=== PATIENT | female | born 1990 | race Caucasian/White ===

== ENCOUNTER 2021-12-10 08:40 | Outpatient (CLI) | payer BC, SELFPAY | END 2021-12-10 08:41 | disposition home or self-care (01) | LOC: ANHLAB 08:47 | DX: N91.2 Amenorrhea, unspecified (principal) | CPT/HCPCS: 36415; 84702 ==

== ENCOUNTER 2022-03-14 08:52 | Outpatient (CLI) | payer BC, SELFPAY ==
[2022-03-14 10:34] LABS: HIV 1/2 Ab P24 Ag Result Negative (Negative)
[2022-03-14 12:08] LABS: Hepatitis C Virus Antibody Negative (Negative)
== END 2022-03-14 08:53 | disposition home or self-care (01) ==
LOC: ANHLAB 09:01
DX: O36.80X0 Pregnancy with inconclusive fetal viability, not applicable or unspecified (principal)
CPT/HCPCS: 36415; 86703; 86803; G0432

== ENCOUNTER 2024-10-20 00:24 | Inpatient (IN) | payer BC, SELFPAY ==
[2024-10-20] VITALS (16 sets, daily range): BP systolic 92–132; BP diastolic 63–84; PULSE 56–89; RESP 16–20; TEMP 36.6–36.8; O2SAT 96–98; BMI 29.1
--- NOTE | 2024-10-20 00:24 | PC.NURSE ---
PT ARRIVES TO L&D VIA EMS AFTER HOME DELIVERY OF TERM FEMALE . ON MOTHER'S CHEST, PINK AND CRYING. PT STATES THAT SHE HAD SROM ON 10/19 @ 2350 AND DELIVERED THE INFANT AT 2355 IN HER BATH TUB. PLACENTA STILL NOT DELIVERED. PT TO ROOM 105.
--- OUTSIDE RECORDS SUMMARY | 2024-10-20 00:39 | XMS_ITS | Referral Summary ---
Author Organization [facility] Address [address] [place] [id number] Care Team Providers Care Ordnance Engineering Technician Name Role Phone Vita Josue MD Primary Care Provider [phone] Encounters Date Type Department Care Team Description 10/14/2024 8:30 AM CDT Office Visit [address] [phone] Pérez Marcial IV, MD Third trimester (Primary Dx) 10/07/2024 11:00 AM CDT Office Visit [address] [phone] Vanda Mejia NP Supervision of high-risk , third trimester (Primary Dx) 09/30/2024 1:15 PM CDT Office Visit [address] [phone] Pérez Marcial IV, MD Third trimester (Primary Dx) 09/26/2024 11:15 AM CDT Office Visit [address] [phone] Pérez Marcial IV, MD Third trimester (Primary Dx) 09/21/2024 Results Follow-Up [address] [phone] Pérez Marcial IV, MD Group B streptococcal culture Vaginal/Rectal 09/19/2024 8:47 PM CDT - 09/19/2024 11:59 PM CDT Hospital Encounter [facility] [address] [place] [phone] Discharge Disposition: Discharge to home or self care 09/19/2024 11:15 AM CDT Office Visit [address] [place] [phone] Pérez Marcial IV, MD Third trimester (Primary Dx) 09/05/2024 11:15 AM CDT Office Visit [address] [place] [phone] Pérez Marcial IV, MD Third trimester (Primary Dx) 09/05/2024 10:30 AM CDT Procedure visit [address] [place] [phone] Encounter for ultrasound to assess growth (Primary Dx) 08/22/2024 11:45 AM CDT Office Visit [address] [place] [phone] Pérez Marcial IV, MD Third trimester (Primary Dx) 08/08/2024 11:45 AM CDT Office Visit [address] [place] [phone] Pérez Marcial IV, MD Third trimester (Primary Dx) from Last 3 Months Allergies No known active allergies Medications No known medications Active Problems Problem Noted Date Diagnosed Date 40 weeks gestation of 10/19/2022 Supervision of high-risk , third trimes ter 06/05/2022 History of anomaly in prior , currently 03/24/2022 History of placenta abruption 03/24/2022 History of delivery, currently 03/24/2022 Estimated Date of Delivery Comme nts Yes 10/17/2024 Based on Ultraso und Immunizations Immunization Administration Dates Next Due Tdap 07/17/2024,08/28/2022 Social History Tobacco Use Types Packs/Day Years Used Date Smoking Tobacco: Never Smokeless Tobacco: Never PHQ-2 Answer Date Recorded PHQ-2 Total Score (If total score is 3 or more points, staff should administer the PHQ-9) 0 03/24/2022 [place] Depression Scale Answer Date Recorded [place] Depression Scale Total 4 11/01/2022 The thought of harming myself has occurred to me . Never 11/01/2022 Personal Safety Answer Date Recorded Have you ever been in or are you currently in a harmful physical or emotional relationship or is someone making you feel afraid or unsafe? Denies 10/19/2022 Estimated Date of Delivery Comme nts Yes 10/17/2024 Based on Ultraso und Sex and Gender Information Value Date Recorded Sex Assigned at Not on file Legal Sex Female 10:29 AM CDT Gender Identity Female 12/20/2021 8:26 PM CDT Sexual Orientation Straight 12/20/2021 8: 26 PM CDT Last Filed Vital Signs Vital Sign Reading Time Taken Comments Blood Pressure 122/78 10/14/2024 8:17 AM CDT Pulse 87 10/14/2024 8:17 AM CDT Temperature 36.6 C (97.8 F) 10/21/2022 7:20 AM CDT Respiratory Rate 19 10/21/2022 7:20 AM CDT Oxygen Saturation 98% 10/14/2024 8:17 AM CDT Inhaled Oxygen Concentration - - Weight 77.1 kg (170 lb) 10/14/2024 8:17 AM CDT Height 165.1 cm (5' 5) 10/14/2024 8:17 AM CDT Body Mass Index 28.29 10/14/2024 8:17 AM CDT Plan of Treatment Not on file Procedures Procedure Name Priority Date/Time Associated Diagnosis Comments POCT OB URINE SHORT DIP (GLUCOSE, PROTEIN, KETONES) Routine 10/14/2024 8:24 AM CDT Third trimester POCT OB URINE SHORT DIP (GLUCOSE, PROTEIN, KETONES) Routine 09/30/2024 1:28 PM CDT Third trimester POCT OB URINE SHORT DIP (GLUCOSE, PROTEIN, KETONES) Routine 09/26/2024 11:34 AM CDT Third trimester GROUP B STREPTOCOCCUS CULTURE Routine 09/19/2024 12:02 PM CDT Third trimester POCT OB URINE SHORT DIP (GLUCOSE, PROTEIN, KETONES) Routine 09/19/2024 11:19 AM CDT Third trimester OB FOLLOW UP Schedule Routine, Read Routine (OP Routine) 09/06/2024 1:53 PM CDT Encounter for ultrasound to assess growth POCT OB URINE SHORT DIP (GLUCOSE, PROTEIN, KETONES) Routine 09/05/2024 10:47 AM CDT Third trimester POCT OB URINE SHORT DIP (GLUCOSE, PROTEIN, KETONES) Routine 08/22/2024 12:08 PM CDT Third trimester POCT OB URINE SHORT DIP (GLUCOSE, PROTEIN, KETONES) Routine 08/08/2024 11:50 AM CDT Third trimester HEPATITIS C ANTIBODY Routine 04/04/2024 3:29 PM TRUCK DRIVER SUPERVISOR First trimester HIGH RISK HPV DNA DETECTION WITH GENOTYPING Routine 05/14/2023 4:36 PM TRUCK DRIVER SUPERVISOR Well woman exam with routine gynecological exam Screening for malignant neoplasm of cervix Screening for HPV (human papillomavirus) from Last 3 Months or Most Recently Relevant to Health Maintenance Results * POCT OB urine short dip (glucose, protein, ketones) (10/14/2024 8:24 AM CDT) Glucose, ur, POC Negative Negative Protein, ur, POC Negative Negative Ketones, ur, POC Negative Negative Urine 10/14/2024 8:24 AM CDT us Pérez Marcial IV, MD POINT OF CARE TEST ORD ERABLES Final Result * POCT OB urine short dip (glucose, protein, ketones) (09/30/2024 1:28 PM CDT) Glucose, ur, POC Negative Negative Protein, ur, POC Negative Negative Ketones, ur, POC Negative Negative Urine 09/30/2024 1:28 PM CDT Pérez Marcial IV, MD POINT OF CARE TEST ORD ERABLES Final Result * POCT OB urine short dip (glucose, protein, ketones) (09/26/2024 11:34 AM CDT) Pathologist [facility] Glucose, ur, POC Negative Negative Protein, ur, POC Negative Negative Ketones, ur, POC Negative Negative Urine 09/26/2024 11:3 4 AM CDT Pérez Marcial IV, MD POINT OF CARE TEST ORD ERABLES Final Result * (ABNORMAL) Group B streptococcal culture Vaginal/Rectal (09/19/2024 12:02 PM CDT) Pathologist [facility] Report Final Report: Streptococcus agalactiae (Group B Streptococci) isolated Penicillin is the drug of choice for Beta strep infections. If susceptibility testing is clinically indicated, please contact the Microbiology Lab within 7 days for susceptibilites ([phone]). (.) Organism STREPTOCOCCUS AGALACTIAE (GROUP B STREPTOCOCCI) [facility] Vaginal/Rectal 09/19/2024 12 :02 PM CDT 09/19/2024 5:07 PM CDT Pérez Marcial IV, MD LAB MICROBIOLOGY - GEN ERAL ORDERABLES Final Result [facility] [address] Department [place] [address] * POCT OB urine short dip (glucose, protein, ketones) (09/19/2024 11:19 AM CDT) Glucose, ur, POC Negative Negative MG/DL Protein, ur, POC Negative Negative Ketones, ur, POC Negative Negative Lot Number [id number] Urine 09/19/2024 11:1 9 AM CDT us Pérez Marcial IV, MD POINT OF CARE TEST ORD ERABLES Final Result * US Ob Follow Up (09/06/2024 1:53 PM CDT) Anatomical Region Laterality Modality Abdomen N/A Ultrasound Narrative 09/06/2024 1:53 PM CDT Intrauterine consistent with 34.3 weeks Positive heart tones and positive movement Estimated weight 51.8%, 2391 g, 5 lb 4 oz Anterior placenta OLMAN 12.44 Vertex presentation us Pérez Marcial IV, MD IMG OB US PROCEDURES F inal Result * POCT OB urine short dip (glucose, protein, ketones) (09/05/2024 10:47 AM CDT) Glucose, ur, POC Negative Negative MG/DL Protein, ur, POC Negative Negative Ketones, ur, POC Negative Negative Urine 09/05/2024 10:4 7 AM CDT us Pérez Marcial IV, MD POINT OF CARE TEST ORD ERABLES Final Result * POCT OB urine short dip (glucose, protein, ketones) (08/22/2024 12:08 PM CDT) Glucose, ur, POC Negative Negative MG/DL Protein, ur, POC Negative Negative Ketones, ur, POC Negative Negative Urine 08/22/2024 12:0 8 PM CDT us Pérez Marcial IV, MD POINT OF CARE TEST ORD ERABLES Final Result * POCT OB urine short dip (glucose, protein, ketones) (08/08/2024 11:50 AM CDT) Glucose, ur, POC Negative Negative MG/DL Protein, ur, POC Negative Negative Ketones, ur, POC Negative Negative Urine 08/08/2024 11:5 0 AM CDT Pérez Marcial IV, MD POINT OF CARE TEST ORD ERABLES Final Result * Hepatitis C antibody Blood (04/04/2024 3:29 PM TRUCK DRIVER SUPERVISOR) Pathologist [facility] Hep C Ab Nonreactive Nonreactive Comment: Interpretive Data Nonreactive: Antibodies to HCV not detected. Does NOT exclude the possibility of recent exposure to HCV. Equivocal: Equivocal for HCV antibodies. Supplemental molecular testing will be automatically performed to determine infection status in accordance with current CDC screening recommendations. Reactive: Positive for HCV antibodies. This may represent current or past HCV infection. Supplemental molecular testing will be automatically performed to determine current infection status in accordance with current CDC screening recommendations. Interpretive data was last revised on 2019. Blood 04/04/2024 3:29 PM TRUCK DRIVER SUPERVISOR 04/04/2024 3:29 PM TRUCK DRIVER SUPERVISOR Pérez Marcial IV, MD LAB MICROBIOLOGY - GEN ERAL ORDERABLES Final Result [facility] [address] Department [place] [address] * High Risk HPV DNA Detection with Genotyping (Molecular component) (05/14/2023 4:36 PM TRUCK DRIVER SUPERVISOR) [facility] HPV HR 16 Not Detected Not Detected [facility] HPV HR 18 Not Detected Not Detected [facility] HPV HR Non 16/18 Not Detected Not Detected [facility] Comment: Interpretive Data Nucleic acid amplification for detection of high-risk Human Papilloma virus (HPV) is performed by the Marisol Jeannie 4800 HPV test, which specifically detects high-risk HPV-16, 18, 31, 33, 35, 39, 45, 51, 52, 56, 58, 59, 66, and 68 genotypes. This assay has been approved by the [place] Food and Drug Administration for detection of HPV in cervical specimens collected by a physician using an endocervical brush/spatula or cervical broom and placed in the ThinPrep Pap Test PreservCyt collection containers. The performance characteristics of this test have been verified by the [facility] Laboratory. Correlate with separately reported cytology results, as applicable. Interpretive data last revised 22 Endocervical 05/14/2023 4:36 PM TRUCK DRIVER SUPERVISOR 05/14/2023 7:20 PM TRUCK DRIVER SUPERVISOR Narrative [facility] - 05/18/2023 8:23 PM TRUCK DRIVER SUPERVISOR Clinical history and diagnosis->wwe Number of vials->1 Testing type->Screening Last menstrual period (date if known)->unk Pérez Marcial IV, MD LAB BODY FLUIDS AND ST OOLS ORDERABLES Final Result Performing Organization Address City/State/[facility] Co de Phone Number [facility] [address] Department [place] [address] from Last 3 Months or Most Recently Relevant to Health Maintenance Insurance [facility] H[facility]/PPO Address: [facility] [address] [place] [address] [facility] CHOICE [facility] H[facility]/PPO Address: [address] [address] [place] [address] [email or web address] OOS Advance Directives For more information, please contact: [phone] * Full Code (Latest Code Status on File) Date Activated Date Inactivated Comments 10/19/2022 8:30 PM 10/21/2022 2:51 PM * Full Code Date Activated Date Inactivated Comments 10/19/2022 11:58 AM 10/19/2022 8:30 PM Full CPR in case of cardiopulmonary arrest Care Teams Ordnance Engineering Technician Relationship Specialty Start Date End Date Vita Josue MD [address] [place] [address] PCP - General Internal Medicine 03/15/22
--- OUTSIDE RECORDS SUMMARY | 2024-10-20 00:39 | XMS_ITS | Encounter Summary ---
Author Organization [facility] Healthcare Address [address] [place] [address] Care Team Providers Care Assisted Living Executive Director Name Role Phone Vita Josue MD Primary Care Provider [phone] Encounter Details Date Type Department Care Team (Late st Contact Info) Description 09/21/2024 Results Follow-Up [facility] [address] [facility] [address] [place] [phone] Pérez Marcial IV, MD [address] [address] Group B streptococcal culture Vaginal/Rectal Social History Tobacco Use Types Packs/Day Years Used Date Smoking Tobacco: Never Smokeless Tobacco: Never PHQ-2 Answer Date Recorded PHQ-2 Total Score (If total score is 3 or more points, staff should administer the PHQ-9) 0 03/24/2022 [place] Depression Scale Answer Date Recorded [place] Depression Scale Total 4 11/01/2022 The thought [...] Orientation Straight 12/20/2021 8: 26 PM CDT documented as of this encounter Plan of Treatment Not on file documented as of this encounter Visit Diagnoses Not on filedocumented in this encounter Care Teams Assisted Living Executive Director Relationship Specialty Start Date End Date Vita Josue MD [address] [place] [address] PCP - General Internal Medicine 03/15/22 documented as of this encounter
--- OUTSIDE RECORDS SUMMARY | 2024-10-20 00:39 | XMS_ITS | Patient Health Record ---
Author Organization [facility] Address [address] [facility] [address] [place], [place] [id number] Care Team Providers Care Political Research Scientist Name Role Phone Maranda Maravilla Unavailable [phone] Allergies No Known Allergies Reason For Referral No Information Medications Medication SIG (Take, Route, Frequency, Duration) Notes Start Date End Date Status Finacea 15% 1 cinthia applied topica lly QAM for 30 day(s) 06/03/2021 Active Soolantra 1% 1 cinthia applied topically QHS for 30 days 06/03/2021 Active Social History Tobacco Use: Social History Observation Description Date Details (start date - stop date) Never Smoker NA - NA Alcohol Question Answer Notes How often did you have a dri nk containing alcohol in the past year? 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
--- OUTSIDE RECORDS SUMMARY | 2024-10-20 00:39 | XMS_ITS | Clinical Summary ---
Author Organization [facility] Address [address] [place] [id number] Care Team Providers Care Drying Machine Receiver Name Role Phone Vita Josue MD Primary Care Provider [phone] Allergies No known active allergies Medications No known medications Active Problems Problem Noted Date Diagnosed Date 40 weeks gestation of 10/19/2022 Supervision of high-risk , third trimes ter 06/05/2022 History of anomaly in prior , currently 03/24/2022 History of placenta abruption 03/24/2022 History of delivery, currently 03/24/2022 Estimated Date of Delivery Comme nts Yes 10/17/2024 Based on Ultraso und Encounters Date Type Department Care Team Description 10/14/2024 8:30 AM CDT Office Visit [address] [phone] Pérez Marcial IV, MD Third trimester (Primary Dx) 10/07/2024 11:00 AM CDT Office Visit [address] [phone] Vanda Mejia NP Supervision of high-risk , third trimester (Primary Dx) 09/30/2024 1:15 PM CDT Office Visit [address] [phone] Pérez Marcial IV, MD Third trimester (Primary Dx) 09/26/2024 11:15 AM CDT Office Visit [address] [place] [phone] éPrez Marcial IV, MD Third trimester (Primary Dx) 09/21/2024 Results Follow-Up [address] [place] [phone] Pérez Marcial IV, MD Group B streptococcal culture Vaginal/Rectal 09/19/2024 8:47 PM CDT - 09/19/2024 11:59 PM CDT Hospital Encounter [address] [phone] Discharge Disposition: Discharge to home or self care 09/19/2024 11:15 AM CDT Office Visit [address] [place] [phone] Pérez Marcial IV, MD Third trimester (Primary Dx) 09/05/2024 11:15 AM CDT Office Visit [address] [place] [phone] Pérez Marcial IV, MD Third trimester (Primary Dx) 09/05/2024 10:30 AM CDT Procedure visit [address] [place] [phone] Encounter for ultrasound to assess growth (Primary Dx) 08/22/2024 11:45 AM CDT Office Visit [address] [phone] Pérez Marcial IV, MD Third trimester (Primary Dx) 08/08/2024 11:45 AM CDT Office Visit [address] [place] [phone] Pérez Marcial IV, MD Third trimester (Primary Dx) from Last 3 Months Immunizations Immunization Administration Dates Next Due Tdap 07/17/2024,08/28/2022 Medical History Medical History Date Comments Anemia Summer 2017 Family History Medical History Relation Name Comments Allergy (severe) Brother Adin Forde Asthma Brothjoann Forde defects Daughter Evette Harry Alcohol abuse Father Zack Forde Diabetes Maternal Grandfather Zeke Hu Alzheimer's disease Maternal Grandmother Erika Hu Cancer Mother Kamla Forde Relation Name Status Comments Brothjoann Forde Daughter Evette Harry Father [employer] Maternal Grandfather Zeke Hu Maternal Grandmother Erika Hu Mother Kamla Forde Social History Tobacco Use Types Packs/Day Years Used Date Smoking Tobacco: Never Smokeless Tobacco: Never PHQ-2 Answer Date Recorded PHQ-2 Total Score (If total score is 3 or more points, staff should administer the PHQ-9) 0 03/24/2022 [place] Depression Scale Answer Date Recorded [place] Depression Scale Total 4 11/01/2022 The thought [...] Orientation Straight 12/20/2021 8: 26 PM CDT Obstetrics History Para Term AB IAB SAB Ectopic Multiple Livin g Live Births 5 2 1 1 2 2 0 2 2 Date Outcome GA Total Labor Labor/2nd/3rd Weight Sex Type Anes PTL Tere A1 A5 Name Clin 2019 32w 0d 1.871 kg (4 lb 2 oz) F Vag-Fo rceps Y Livin g Complications:Premature Rupt ure of Membranes,Abruptio Placenta, hemorrhage 2021 SAB 11w 4d med 2022 Term 40w 1d 0h 23m 0h 21m/0h 02m 3.66 kg (8 lb 1.1 oz) F Vagina l Epidur al N Livin g 8 9 Colin Acevedo Grimsley joann wahl MD Complications:None Delivery Location:[facility] ([facility] 2023 SAB SAB Current Comments First PPROM and po stpartum hemorrhage Summary Episode Dates Number of Fetuses Estimated Date of Delivery 03/06/2024 - Present (10/20/2024) 10/17/2024 (set by Fr quan Marcial IV, MD on 03/06/2024 based on Ultrasound on 03/06/2024) Dating Summary Based On ILAN GA Diff Last Menstrual Period (LMP Unknown) Ultrasound on 03/06/2024 10/17/2024 Working GA:7w6d Overview and Plan sex:Female Support person:Lance Delivery Plans Post-Delivery Plans Planned delivery method:Vaginal Feeding intentions:Breast Milk Planned delivery location:[facility] Circumcision requested:Provider Performe d Planned anesthesia:Epidural Acceptable blood products:All Overview delivery at 32 weeks with her 1st secondary to PPROM, and placental abruption History of hemorrhage with her 1st Positive GBS - will treat with ampicillin when in labor Courtney Cantu First Trimester: [x] Labs: 04/04/2024 Blood Type - B positive Hgb 14.2 Plts 351 Antibody screen - negative HIV - non-reactive Hep B - non-reactie Hep C - non-reactive RPR - non-reactive Rubella - reactive / immune Gonorrhea and chlamydia --> negative Urine culture --> contamination with gram positive luiz [x] Genetic Screening: Declines optional test 2nd Trimester: [x] Anatomy ultrasound: 06/10/2024 - vertex presentation / normal anatomy / cervical length 3.89 cm Growth ultrasound: 09/05/2024 - vertex presentation / EFW 51.8%, 2391, 5 lbs 4 oz, OLMAN 12.44 cm 3rd Trimester: [x] CBC: 07/17/2024 Hgb: 12.6 Plts: 448 [x] 1hr GCT (26-28wks): 07/17/2024 -- 122 [x] Tdap (27-36wks) 07/17/2024 declines flu vaccine [] Rhogam (if Rh neg): [x] GBS 09/20/2019 -- positive Vitals Pregravid Weight Height TWG (As of 10/20/2024) Pregrav id BMI 63.5 kg (140 lb) 165.1 cm (5' 5) 13.6 kg (30 lb) 23.3 0 Date GA Fund Present FHR Mvmt BP Weight Edema Alb Glu Ket Dil/ Eff/Sta 5 37w0d 126/76 76.7 kg (169 lb) /-3 5 37w4d 120/78 76.7 kg (169 lb) -4 5 38w4d 122/80 77.1 kg (170 lb) 5 39w4d 122/78 77.1 kg (170 lb) 4 Notes Progress Notes - Office Visi t - 10/14/2024 - GA:39w4d 10/14/2024 - 39w4d - Pérez Marcial IV, MD She is doing well. She is having some contractions but nothing regular. She is 4 cm dilated. She is scheduled for induction next Sunday. I did give her the information about inductions at [facility]. Hopefully, she will go into labor sometime this week. Progress Notes - Office Visi t - 10/07/2024 - GA:38w4d 10/07/2024 - 38w4d - Vanda Mejia NP This patient has verbally consented to recording this visit in order to utilize AI technology in generating this note. OBSTETRIC ITEM LIST Prior with PPROM/ hemorrhage GBS+ 38w4d History of Present Illness Devi Ca is a 33 year old female who presents for a routine visit. She is currently with her third child and is experiencing intermittent contractions without any associated bleeding. She has no major concerns at this time. Previously, she was noted to be three centimeters dilated, which she mentions is not abnormal for her. She has two other children, aged almost five and two. Assessment & Plan with contractions Intermittent contractions without consistency. Cervical dilation at 3 cm, normal for her. Induction planned if necessary on October 21, 2024. Next visit: 1w Vanda Mejia NP Progress Notes - Office Visi t - 09/30/2024 - GA:37w4d 09/30/2024 - 37w4d - Pérez Marcial IV, MD She is doing very well. She is feeling more contractions. She still is 3 cm. She understands if she starts having strong regular contractions to go to the hospital. She is group B strep positive. She understands this also. Progress Notes - Office Visi t - 09/26/2024 - GA:37w0d 09/26/2024 - 37w0d - Pérez Marcial IV, MD She is doing very well. She is 3 cm dilated. If she does not deliver before her due date, she would like to be induced around October 21. The baby is very active. She is having some contractions but nothing regular. She denies any bleeding. Progress Notes - Office Visi t - 09/19/2024 - GA:36w0d 09/19/2024 - 36w0d - Pérez Marcial IV, MD She is doing very well. The baby is very active. She denies any bleeding. She is having a few contractions but nothing regular. Group B strep culture obtained today. Progress Notes - Office Visi t - 09/05/2024 - GA:34w0d 09/05/2024 - 34w0d - Pérez Marcial IV, MD She is doing very well. Growth ultrasound today 51.8%. Vertex presentation. She denies any vaginal bleeding. She is feeling a lot of movement. Progress Notes - Procedure v isit - 09/05/2024 - GA:34w0d 09/05/2024 - 34w0d - Maryellen Gudino RDMS Please see scanned preliminary ultrasound report. Maryellen Gudino RDMS Progress Notes - Office Visi t - 08/22/2024 - GA:32w0d 08/22/2024 - 32w0d - Pérez Marcial IV, MD She continues to do great. She has an anatomy ultrasound in 2 weeks. She is feeling plenty of movement. She is having a few contractions. She denies any bleeding. Progress Notes - Office Visi t - 08/08/2024 - GA:30w0d 08/08/2024 - 30w0d - Pérez Marcial IV, MD She is doing very well. She really has no complaints. She does have a growth ultrasound scheduled in 4 weeks and an appointment in 2 weeks. Progress Notes - Office Visi t - 07/17/2024 - GA:26w6d 07/17/2024 - 26w6d - Pérez Marcial IV, MD She is doing very well. 1 hour GTT today. Tdap vaccine today. MATIC MOUNTER Progress Notes - Office Visi t - 06/17/2024 - GA:22w4d 06/17/2024 - w4d - Lianet Brunson i, MD Doing well. Feeling good FM. Denies ctx, LOF or VB. Headaches are improved and nausea is resolved. Discussed results of anatomy US. Reassuring findings. Discussed T3, GCT at next visit. Tdap after 27 weeks. MATIC MOUNTER Progress Notes - Clinical Valdovinos pport - 06/10/2024 - GA:21w4d 06/10/2024 - - Maryellen Gudino RDMS Please see scanned preliminary ultrasound report. Maryellen Gudino RDMS MATIC MOUNTER Progress Notes - Routine Pre gay - 05/09/2024 - GA:17w0d 05/09/2024 - 17w0d - Pérez Marcial IV, MD She denies any bleeding. She is having some discomfort in her left upper quadrant of her abdomen. I think this is more musculoskeletal. She declines a flu vaccine. Anatomy ultrasound on June 06. MATIC MOUNTER Progress Notes - Routine Pre gay - 04/04/2024 - GA:12w0d 04/04/2024 - 12w0d - Pérez Marcial IV, MD States she has headaches and then nausea and vomiting usually in the evening. She states she is having trouble swallowing pills with her nausea. Will try Fioricet for headache, and Zofran for her nausea. OB profile today. She declines optional test. She is feeling movement. MATIC MOUNTER Last Filed Vital Signs Vital Sign Reading [...] 10/14/2024 8:17 AM CDT Plan of Treatment Health Maintenance Due Date Last Done Comments Varicella Vaccines (1 of 2 - 13+ 2-dose series) 2005 Hepatitis B Screening 2010 Depression Screening 11/02/2023 11/01/2022, 03/24/2022 Cervical Cancer Screening 05/14/20242022, 05/14/2023 Regular Well Visit/Exam 18-64 05/14/2024 05/14/2023 Influenza Vaccine (Season Ended) 2025 DTaP/Tdap/Td Vaccine (4 - Td or Tdap) 07/17/2034 07/17/2024, 08/28/2022, 01/26/2022 Hepatitis C Screening Completed 04/04/2024 , 05/08/2022 HPV Vaccines Aged Out No longer eligi ble based on patient's age to complete this topic Pneumococcal vaccine <65 Aged Out No longer eligible based on patient's age to complete this topic Procedures Procedure Name Priority Date/Time Associated Diagnosis [...] Routine 09/19/2024 11:19 AM CDT Third trimester US OB FOLLOW UP Schedule Routine, Read Routine [...] HEPATITIS C ANTIBODY Routine 04/04/2024 3:29 PM AUTOMATIC MOUNTER First trimester HIGH RISK HPV DNA DETECTION WITH GENOTYPING Routine 05/14/2023 4:36 PM AUTOMATIC MOUNTER Well woman exam with routine gynecological exam Screening for malignant neoplasm of cervix Screening for HPV (human papillomavirus) from Last 3 Months or Most Recently Relevant to Health Maintenance Results * POCT OB urine short dip (glucose, protein, ketones) (10/14/2024 8:24 AM CDT) Glucose, ur, POC Negative Negative Protein, ur, POC Negative Negative Ketones, ur, POC Negative Negative Urine 10/14/2024 8:24 AM CDT Pérez Marcial IV, MD POINT [...] (glucose, protein, ketones) (09/26/2024 11:34 AM CDT) [facility] Glucose, ur, POC Negative Negative Protein, ur, POC Negative Negative Ketones, ur, POC Negative Negative Urine 09/26/2024 11:3 4 AM CDT Pérez Marcial IV, MD POINT OF CARE TEST ORD ERABLES Final Result * (ABNORMAL) Group B streptococcal culture Vaginal/Rectal (09/19/2024 12:02 PM CDT) [facility] Report Final Report: Streptococcus agalactiae (Group B Streptococci) isolated Penicillin is the drug of choice for Beta strep infections. If susceptibility testing is clinically indicated, please contact the Microbiology Lab within 7 days for susceptibilites ([phone]). (.) Organism STREPTOCOCCUS AGALACTIAE (GROUP B STREPTOCOCCI) [facility] Vaginal/Rectal 09/19/2024 12 :02 PM CDT 09/19/2024 5:07 PM CDT Pérez Marcial IV, MD LAB MICROBIOLOGY - GEN ERAL ORDERABLES Final Result [facility] [address] Department [place] [address] * POCT OB urine short dip (glucose, protein, ketones) (09/19/2024 11:19 AM CDT) [facility] Glucose, ur, POC Negative Negative MG/DL Protein, ur, POC Negative Negative Ketones, ur, POC Negative Negative Lot Number [id number] Urine 09/19/2024 11:1 9 AM CDT us [...] Hepatitis C antibody Blood (04/04/2024 3:29 PM AUTOMATIC MOUNTER) Hep C Ab Nonreactive Nonreactive Comment: Interpretive [...] revised on 2019. Blood 04/04/2024 3:29 PM AUTOMATIC MOUNTER 04/04/2024 3:29 PM AUTOMATIC MOUNTER Pérez Marcial IV, MD LAB MICROBIOLOGY - GEN ERAL ORDERABLES Final Result [facility] [address] Department [place] [address] * High Risk HPV DNA Detection with Genotyping (Molecular component) (05/14/2023 4:36 PM AUTOMATIC MOUNTER) HPV HR 16 Not Detected Not Detected [facility] HPV HR 18 Not Detected Not Detected [facility] HPV HR Non 16/18 Not Detected Not Detected [facility] Comment: Interpretive Data Nucleic acid [...] this test have been verified by the [facility]. Correlate with separately reported cytology results, as applicable. Interpretive data last revised 22 Endocervical 05/14/2023 4:36 PM AUTOMATIC MOUNTER 05/14/2023 7:20 PM AUTOMATIC MOUNTER Narrative [facility] - 05/18/2023 8:23 PM AUTOMATIC MOUNTER Clinical history and diagnosis->wwe Number of vials->1 Testing type->Screening Last menstrual period (date if known)->unk Pérez Marcial IV, MD LAB BODY FLUIDS AND ST OOLS ORDERABLES Final Result [facility] [address] Department [place] [address] from Last 3 Months or Most Recently Relevant to Health Maintenance Insurance [facility] [employer] [facility] H[facility]/PPO Address: [facility] [address] [place] [address] [facility] [employer] H[employer]/PPO Address: [address] [address] [place] [address] [employer] Advance Directives For more information, please contact: [phone] * Full Code (Latest Code Status on File) Date Activated Date Inactivated Comments 10/19/2022 8:30 PM 10/21/2022 2:51 PM * Full Code Date Activated Date Inactivated Comments 10/19/2022 11:58 AM 10/19/2022 8:30 PM Full CPR in case of cardiopulmonary arrest Care Teams Drying Machine Receiver Relationship Specialty Start Date End Date Vita Josue MD [address] [place] [address] PCP - General Internal Medicine 03/15/22
[2024-10-20 00:52] LABS: Basophils Percent Auto 0.1 % (0.2-1.2); Eosinophils Percent Auto 0.4 % (0-4.4); Hematocrit 35.3 % (37.0-47.0); Hemoglobin 11.4 g/dL (12.0-15.0); Immature Granulocyte Absolute 0.03 K/mm3 (0.00-0.031); Immature Granulocyte Percent A 0.4 % (0-0.5); Lymphocytes Absolute Auto 1.92 K/mm3 (0.9-3.2); Lymphocytes Percent Auto 25.7 % (18.3-44.2); Mean Corpuscular HGB Conc 32.3 g/dl (32-36); Mean Corpuscular Hemoglobin 28.6 pg (26-34); Mean Corpuscular Volume 88.5 fl (80-100); Mean Platelet Volume 9.8 fl (7.4-10.4); Monocytes Absolute Auto 0.5 K/mm3 (0.1-0.6); Neutrophils Percent Auto 66.4 % (45.5-73.1); Platelet Count Result 283 k/mm3 (150-375); Red Blood Count 3.99 M/mm3 (4.2-5.4); Red Cell Distribution Width 13.3 % (11.5-14.5); White Blood Count 7.5 K/mm3 (4.5-10.0)
[2024-10-20] MEDS: OXYTOCIN 30 UNITS/NS 500 ML 30 UNITS/500 ML BAG 999 UNITS IV CONT (00:52)
--- NOTE | 2024-10-20 00:58 | PM.IMHP ---
H&P: HPI History of Present Illness Date/Time: 10/20/24 00:58 Chief Complaint: Home delivery at 40weeks gestation Narrative: 34-year-old 3 para 2 whose due 3 days ago admitted via ambulance after home delivery in the bathroom. She is positive for group B strep. Delivered at home. Placenta was delivered here. Review of Systems Review of Systems: All systems reviewed & are unremarkable except as noted in HPI and below Meds Vital Signs Vital Signs - 24 hr 10/20/24 00:40 10/20/24 00:45 Pulse Rate 89 79 Blood Pressure 116/81 108/84 Exam Const: General: cooperative, healthy appearing and comfortable Nutritional Appearance: average body habitus Orientation/consciousness: oriented to person, oriented to place and oriented to time Resp: Effort & Inspection: normal respiratory effort GI: Inspection: normal to inspection (Fundus firm below the umbilicus) : External Female Exam: normal external appearance Speculum Exam - Vagina: normal appearance of the vagina (Small 1st degree tear not repaired) Speculum Exam - Cervix: normal appearance of the cervix H&P: Results Labs Labs: Short CBC 10/20/24 Range/Units 00:46 WBC 7.5 (4.5-10.0) K/mm3 Hgb 11.4 L (12.0-15.0) g/dL Hct 35.3 L (37.0-47.0) % Plt Count 283 (150-375) k/mm3 Assessment and Plan Assessment and plan (1) Term delivered: Code(s): O80 - Encounter for full-term uncomplicated delivery Status: Acute (2) Positive testing for group B Streptococcus: Code(s): B95.1 - Streptococcus, group B, as the cause of diseases classified elsewhere Status: Acute Plan Placenta was delivered. Routine care expected. Will make peds aware positive group B strep
--- NOTE | 2024-10-20 01:01 | PM.OBPRVD ---
OB - Vaginal Delivery Note Procedure Delivery date: 10/20/24 Events: Positive Group B Strep (GBS) Intrapartal Events: Other (Precipitous delivery) Induction method: None Delivery monitor: None Episiotomy description: None Laceration Description: None Quantitative Blood Loss (ml): 50 Anesthesia type: None Disposition: Floor Complications: No immediate complications Narrative: Patient was admitted through the ambulance. She had delivered at home at 40 and 3 7th weeks gestation. Placenta remained Baby Date of : 10/20/24 Time of : 12:51 Gestational Age by Date: 40 Infant gender: Female Placenta delivery description: Spontaneous Cord Vessel Description: 3 Vessels
[2024-10-20 01:02] LABS: Alanine Aminotransferase 20 U/L (6-35); Albumin Level 3.5 g/dL (3.5-5.1); Alkaline Phosphatase 112 U/L (38-126); Anion Gap 9 mmol/L (4-12); Aspartate Amino Transferase 31 U/L (14-36); Bilirubin,Total < 0.1 mg/dL (0.2-1.3); Blood Urea Nitrogen 10 mg/dL (7-17); Calcium 8.7 mg/dL (8.4-10.2); Carbon Dioxide 22 mmol/L (22-30); Chloride 104 mmol/L (98-107); Estimated CRCL calculation 135 ml/min; Estimated Glomerular Filt Rate > 60; Glucose 94 mg/dL (65-110); Potassium 3.9 mmol/L (3.4-5.0); Sodium 135 mmol/L (137-145)
--- NOTE | 2024-10-20 01:03 | P.DS_ITS ---
DS: Admitting Diagnosis Discharge Date 10/21/2024 Admitting Diagnosis Term delivered DS: Discharge Diagnosis Discharge Diagnosis (1) Positive testing for group B Streptococcus: Code(s): B95.1 - Streptococcus, group B, as the cause of diseases classified elsewhere Status: Acute (2) Term delivered: Code(s): O80 - Encounter for full-term uncomplicated delivery Status: Acute DS: Summary Hospital Course Reason for hospitalization: Patient was brought in via ambulance in the early a.m.. of 10/20/2024. Hospital Course: Patient's hospital course unremarkable. She was watched for 48hours due to her history of group B strep. Patient was up voiding without difficulty eating regular diet ambulating and had orally without complaints. Time Spent with Patient Time attestation: Total time spent providing and/or coordinating discharge services: Exam Const: General: cooperative, healthy appearing and comfortable Nutritional Appearance: average body habitus Orientation/consciousness: oriented to person, oriented to place and oriented to time Resp: Effort & Inspection: normal respiratory effort GI: Inspection: normal to inspection (Fundus firm below the umbilicus) : External Female Exam: normal external appearance Speculum Exam - Vagina: normal appearance of the vagina (Small 1st degree tear not repaired) Speculum Exam - Cervix: normal appearance of the cervix DS: Data Data Completed and Pending Labs on day of discharge: Labs from last 24 hours 10/20/24 00:46 WBC 7.5 RBC 3.99 L Hgb 11.4 L Hct 35.3 L MCV 88.5 MCH 28.6 MCHC 32.3 RDW 13.3 Plt Count 283 MPV 9.8 Immature Gran % (Auto) 0.4 Neut % (Auto) 66.4 Lymph % (Auto) 25.7 [place] % (Auto) 7.0 Eos % (Auto) 0.4 Baso % (Auto) 0.1 L Lymph # (Auto) 1.92 [place] # (Auto) 0.5 Eos # (Auto) 0.0 Baso # (Auto) 0.0 Abs Immat Gran (auto) 0.03 Absolute Neuts (auto) 5.0 Absolute Nucleated RBC 0.000 Nucleated RBC % 0.0 Sodium 135 L Potassium 3.9 Chloride 104 Carbon Dioxide 22 Anion Gap 9 BUN 10 Creatinine 0.50 L Estim Creat Clear Calc 135 Estimated GFR > 60 Glucose 94 Calcium 8.7 Total Bilirubin < 0.1 L AST 31 ALT 20 Alkaline Phosphatase 112 Total Protein 7.0 Albumin 3.5 Hep Bs Antigen Pending HIV 1&2 Ab/P24 Ag 4thGn Pending Rubella IgG Antibody Pending Blood Type Pending Antibody Screen Pending Discharge Plan Discharge Attending physician on discharge: Ayden Poe Discharging Clinician: Ayden Poe Patient Disposition: Home Activity: may shower, no straining and pelvic rest Diet: heart healthy Wound Care Instructions: follow printed instructions Patient Instructions: Antibiotic Form Patient Language: Bengali Stand Alone Forms: General Discharge Information Follow-up/Referrals: Ayden Poe MD [Physician] - Date of admission: 10/20/24 00:24 Primary Care Provider: UNKNOWN,DOCTOR Admitting Provider: Ayden Poe Attending physician on admission: Ayden Poe Condition: Stable
[2024-10-20] MEDS: IBUPROFEN 600 MG TABLET (01:15)
[2024-10-20] MEDS: OXYTOCIN 30 UNITS/NS 500 ML 30 UNITS/500 ML BAG 125 UNITS IV CONT (01:20)
[2024-10-20] MEDS: WITCH HAZEL 40 PADS 1 PAD (01:30)
[2024-10-20] MEDS: BENZOCAINE 20% AER SPR (*SP) 56 GM CAN 1 SPRAY (01:30)
[2024-10-20 01:34] LABS: Rubella IgG Antibody 19.9 IU/ML
--- NOTE | 2024-10-20 01:35 | LDADM ---
This patient, Devi Pond, was admitted to Labor/Delivery/Recovery 105 on 10/20/24 at 00:24. Plans for labor, pain management and were discussed with patient. Patient/family oriented to hospital policies and general routines including ID bracelet, bed and alarms, visiting hours, pain management, procedures, bathroom and other care routines, personal items, smoking policy, room service/diet and guest tray routines, security routines, and visiting hours. Patient/Family are encouraged to report perceived risks to care and to ask questions if they do not understand what they are told or what they should do. See OBIX for further documentation.
[2024-10-20 01:36] LABS: Syphilis IgG/IgM Antibody Negative (Negative)
[2024-10-20 01:42] LABS: Hepatitis B Surface Antigen Negative (Negative)
[2024-10-20 02:40] LABS: HIV 1/2 Ab P24 Ag Result Negative (Negative)
[2024-10-20] MEDS: ACETAMINOPHEN 325 MG TABLET 650 MG (03:09)
--- NOTE | 2024-10-20 08:05 | PC.NURSE ---
Introductions were made, then consulted with patient to assess needs related to . Discussed with mother her?plans to feed?her and the?experience so far. She states feedings have gone well and that she breastfed her two other daughters. Resources provided for inpatient and outpatient services with the feeding sheet, mom/baby guide and name written on the communication board. Mother voiced understanding of information and will call if there is a request for assistance. Reported to the Primary RN.
[2024-10-20] MEDS: DOCUSATE SODIUM 100 MG CAPSULE PO (09:25)
[2024-10-20] MEDS: MULTIVIT/MIN/PREN/FOL AC/IRON TABLET 1 TAB PO (09:25)
[2024-10-20] MEDS: IBUPROFEN 600 MG TABLET PO ×2 (12:38→18:40)
[2024-10-21 04:23] LABS: Hematocrit 36.2 % (37.0-47.0); Hemoglobin 10.3 g/dL (12.0-15.0)
--- NOTE | 2024-10-21 07:32 | P.PNOB_ITS ---
OB - PN: Subj Subjective Date/time seen: 10/21/24 07:32 Patient comments: no complaints, pain well controlled and tolerating diet [place] baby status: doing well OB - PN: Obj Data Labs 10/21/24 04:00 10/20/24 00:46 Labs: Laboratory Results - last 24 hr 10/21/24 04:00 Hgb 10.3 L Hct 36.2 L OB - PN A/P Assessment and Plan (1) Positive testing for group B Streptococcus: Code(s): B95.1 - Streptococcus, group B, as the cause of diseases classified elsewhere Status: Acute (2) Term delivered: Code(s): O80 - Encounter for full-term uncomplicated delivery Status: Acute Plan Comments: home Time Spent With Patient Time: Total time spent is greater than 50% in coordination of care (as documented) at patient's floor/unit and/or counseling patient: Review of Systems 2 Review of Systems: All systems reviewed & are unremarkable except as noted in HPI and below Exam 2 Const: General: cooperative, healthy appearing and comfortable Nutritional Appearance: average body habitus Orientation/consciousness: oriented to person, oriented to place and oriented to time Resp: Effort & Inspection: normal respiratory effort GI: Inspection: normal to inspection (Fundus firm below the umbilicus) : External Female Exam: normal external appearance Speculum Exam - Vagina: normal appearance of the vagina (Small 1st degree tear not repaired) Speculum Exam - Cervix: normal appearance of the cervix
[2024-10-21 08:30] VITALS: BP 117/79; PULSE 77; RESP 18; TEMP 36.8; O2SAT 97
--- NOTE | 2024-10-21 14:15 | PC.NURSE ---
Consulted with mother concerning needs and she shared her ability to independently latch infant optimally without pain. Mother is feeding appropriately for growth of and understands stimulating to eat if needed. Infant has had appropriate feedings in the last 24 hours meets the outcomes for weight, output, blood sugar and jaundice at this time. Reinforced understanding of milk production, transition of milk, signs of adequate intake, transition of stool, prevention/relief of engorgement, plugged ducts, mastitis, responsive watching for feeding cues, the different methods of stimulating to breastfeed 1-3 hours after the start of the last feeding, community resources, and when to call a provider using the resource of the feeding sheet along with the mom and baby guide. Mother voiced understanding of the information shared, is confident to continue effectively her infant at home, when to call for assistance, denies any additional assistance or education at this time. Reported to the Primary RN.
[2024-10-22 09:34] VITALS: BP 135/75; PULSE 67; RESP 18; TEMP 36.7; O2SAT 100
== END 2024-10-21 18:07 | disposition home or self-care (01) | DRG 776 ==
LOC: ANHLDR 01:05 → ANHOB2 04:10
PROVIDERS: Admitting Provider Obstetrics & Gynecology; Visit Provider Obstetrics & Gynecology
DX: O99.825 Streptococcus B carrier state complicating the puerperium (principal)
CPT/HCPCS: 36415; 80053; 85014; 85018; 85025; 86593; 86703; 86762; 86850; 86900; 86901; 87340; A9270; G0432; J2590